=== PATIENT | male | born 1985 | race American Indian/Alaskan Native ===

== ENCOUNTER 2018-01-30 04:06 | Emergency (ER) | payer SELFPAY ==
[2018-01-30] MEDS ORDERED: ATIVAN ONE (04:34)
[2018-01-30] MEDS ORDERED: NACL 0.9% 1000 ML 1,000 ML ONE (04:34)
[2018-01-30] MEDS ORDERED: NACL 0.9% 1000 ML 1,000 ML IV ONE ×3 (04:39→06:35)
[2018-01-30] MEDS ORDERED: ATIVAN IV ONE (04:39)
[2018-01-30 05:12] LABS: Hematocrit 40.3 % (35.5-45.6); Hemoglobin 13.6 gm/dl (11.8-15.2); Mean Corpuscular HGB Conc 34 % (32-34); Mean Corpuscular Hemoglobin 29 pg (28-32); Mean Corpuscular Volume 85 fl (84-94); Platelet Count 202 K/mm3 (140-440); Red Blood Count 4.74 M/mm3 (3.65-5.03); Red Cell Distribution Width 14.2 % (13.2-15.2)
[2018-01-30 05:23] LABS: Bilirubin,Urine NEG (Negative); Blood,Urine LG (Negative); Color,Urine Yellow (Yellow); Hyaline Casts,Urine 2 /LPF
[2018-01-30 05:27] LABS: Methadone Screen,Urine PRESUMPTIVE NEGATIVE; Opiate Screen,Urine PRESUMPTIVE NEGATIVE
[2018-01-30 05:30] LABS: Alanine Aminotransferase 162 units/L (7-56); Albumin 3.7 g/dL (3.9-5); BUN/Creatinine Ratio 11; Blood Urea Nitrogen 14 mg/dL (9-20); Calcium 7.4 mg/dL (8.4-10.2); Hemolysis Index 8
[2018-01-30 05:40] LABS: Amphetamine Screen,Urine PRESUMPTIVE POSITIVE; Benzodiazepines Screen,Urine PRESUMPTIVE POSITIVE; Cannabinoid Screen,Urine PRESUMPTIVE POSITIVE; Cocaine Screen,Urine PRESUMPTIVE POSITIVE
[2018-01-30 06:07] LABS: Band Neutrophils # (Manual) 0.2 K/mm3; Basophils % (Manual) 0 % (0.0-1.8); Eosinophils % (Manual) 0 % (0.0-4.3); Platelet Estimate Consistent w Auto; Total Cells Counted 100
[2018-01-30] MEDS: KCL 10MEQ/100ML 10 MEQ/100 ML BAG IV SCH ×3 (06:17→08:39)
--- NOTE | 2018-01-30 06:33 | Emergency Department Report ---
ED Altered Mental Status HPI - General Chief Complaint: Altered Mental Status Stated Complaint: EXCITED DELIRIUM Time Seen by Provider: 01/30/18 06:01 Source: EMS Mode of arrival: Stretcher Limitations: Physical Limitation - History of Present Illness Initial Comments: 2-year-old male that presents emergency room with complaints of altered mental status. Patient brought in by police and EMS for belligerent behavior. Patient was given Haldol and Versed by EMS and patient continued to be combative. The police had to taze the patient. Patient continued to combative upon arrival to the ER was given Ativan. At this point patient is A&OX1 and lethargic but arousable. Complaint: altered mental status, decreased responsiveness, intoxication -: Sudden Severity: severe Consistency of Symptoms: waxing and waning Context: drug abuse, trauma Treatments Prior to Arrival: IV fluid - Related Data Allergies Allergy/AdvReac Type Severity Reaction Status Date / Time No Known Allergies Allergy Unverified 01/30/18 04:15 ED Review of Systems ROS: Stated complaint: EXCITED DELIRIUM Other details as noted in HPI Comment: Unobtainable due to pts medical conditions ED Past Medical Hx - Past Medical History Previous Medical History?: No - Surgical History Past Surgical History?: No - Family History Family history: no significant - Social History Smoking Status: Unknown if ever smoked Substance Use Type: Other ED Physical Exam - General Limitations: Altered Mental Status, Physical Limitation General appearance: in no apparent distress, lethargic - Head Head exam: Present: atraumatic, normocephalic - Eye Eye exam: Present: normal appearance - ENT ENT exam: Present: mucous membranes moist - Neck Neck exam: Present: normal inspection - Respiratory Respiratory exam: Present: normal lung sounds bilaterally. Absent: respiratory distress - Cardiovascular Cardiovascular Exam: Present: regular rate, normal rhythm. Absent: systolic murmur, diastolic murmur, rubs, gallop - GI/Abdominal GI/Abdominal exam: Present: soft, normal bowel sounds - Rectal Rectal exam: Present: deferred - Extremities Exam Extremities exam: Present: normal inspection - Back Exam Back exam: Present: normal inspection - Neurological Exam Neurological exam: Present: altered (patient lethargic but arousable. Patient is A&OX1) - Expanded Neurological Exam Expanded Best Eye Response (Anastasiia): (3) open to voice Best Motor Response (Anastasiia): (6) obeys commands Best Verbal Response (Euless): (4) confused conversation Anastasiia Total: 13 - Psychiatric Psychiatric exam: Present: normal affect, normal mood - Skin Skin exam: Present: warm, dry, intact, normal color. Absent: rash - Assessment Assessment Interval: Baseline - Level of Consciousness 1a. Level of Consciousness: alert/keenly responsive - LOC Questions 1b. LOC Questions: answers both correctly - LOC Command 1c. LOC Commands: performs tasks correctly - Best Gaze 2. Best Gaze: normal - Visual 3. Visual: no visual loss - Facial Palsy 4. Facial Palsy: normal symmetrical movement - Motor Arm 5b. Motor Arm Right: no drift 5a. Motor Arm Left: no drift - Motor Leg 6a. Motor Leg Left: no drift 6b. Motor Leg Right: no drift - Limb Ataxia 7. Limb Ataxia: absent - Sensory 8. Sensory: normal - Best Language 9. Best Language: no aphasia - Dysarthria 10. Dysarthria: normal - Extinction and Inattention 11. Extinction/Inattention: no abnormality - Scoring Total Score: 0 Stroke Severity: No Stroke Symptoms ED Course Vital Signs 01/30/18 01/30/18 01/30/18 04:22 04:58 05:00 Temperature Pulse Rate 158 H 133 H 123 H Respiratory 20 26 H 25 H Rate Blood Pressure Blood Pressure 129/55 [Left] O2 Sat by Pulse 93 97 98 Oximetry 01/30/18 01/30/18 01/30/18 05:15 05:16 05:30 Temperature Pulse Rate 121 H 125 H 108 H Respiratory 18 20 19 Rate Blood Pressure 143/73 138/76 Blood Pressure 138/76 [Left] O2 Sat by Pulse 100 100 100 Oximetry 01/30/18 01/30/18 01/30/18 05:45 06:00 06:15 Temperature Pulse Rate 105 H 109 H 115 H Respiratory 17 18 16 Rate Blood Pressure 102/58 102/58 144/90 Blood Pressure [Left] O2 Sat by Pulse 100 100 100 Oximetry 01/30/18 01/30/18 01/30/18 06:30 06:46 06:49 Temperature 98.6 F Pulse Rate 106 H 109 H 108 H Respiratory 18 18 18 Rate Blood Pressure 144/90 126/63 Blood Pressure 137/72 [Left] O2 Sat by Pulse 100 100 100 Oximetry 01/30/18 01/30/18 01/30/18 07:00 07:16 07:30 Temperature Pulse Rate 107 H 101 H 99 H Respiratory 16 15 16 Rate Blood Pressure 137/72 130/66 112/59 Blood Pressure [Left] O2 Sat by Pulse 100 100 100 Oximetry 01/30/18 01/30/18 01/30/18 07:46 08:00 08:15 Temperature Pulse Rate 102 H 99 H 114 H Respiratory 17 16 15 Rate Blood Pressure 107/58 131/74 139/71 Blood Pressure [Left] O2 Sat by Pulse 100 100 100 Oximetry 01/30/18 01/30/18 01/30/18 08:30 08:46 09:01 Temperature Pulse Rate 106 H 109 H 123 H Respiratory 23 19 17 Rate Blood Pressure 139/71 145/74 131/74 Blood Pressure [Left] O2 Sat by Pulse 100 100 98 Oximetry - Reevaluation(s) Reevaluation #1: Due to patient's altered mental status and combative and agitated behaviors, patient will place on 2012 for intoxication 01/30/18 06:01 Patient more awake at this time. Discussed all results with patient. Discussed plan of care and transfer. Patient agrees with plan of care. Patient is now A&OX3. Patient is only confused to the situation. 01/30/18 07:57 - Consultations Consultation #1: We'll consult [facility] due to inferior orbital fracture. 01/30/18 06:33 Dr christiano lobato accepted pt to [facility]. transfer via EMS 01/30/18 08:34 - Lab Data Result diagrams: 01/30/18 04:43 01/30/18 04:43 Lab Results 01/30/18 01/30/18 01/30/18 Range/Units 04:43 04:43 04:43 WBC 19.4 H (4.5-11.0) K/mm3 RBC 4.74 (3.65-5.03) M/mm3 Hgb 13.6 (11.8-15.2) gm/dl Hct 40.3 (35.5-45.6) % MCV 85 (84-94) fl MCH 29 (28-32) pg MCHC 34 (32-34) % RDW 14.2 (13.2-15.2) % Plt Count 202 (140-440) K/mm3 Add Manual Diff Complete Total Counted 100 Seg Neutrophils % Strike Planning Applications Seg Neuts % (Manual) 90.0 H (40.0-70.0) % Band Neutrophils % 1.0 % Lymphocytes % (Manual) 4.0 L (13.4-35.0) % Reactive Lymphs % (Man) 0 % Monocytes % (Manual) 5.0 (0.0-7.3) % Eosinophils % (Manual) 0 (0.0-4.3) % Basophils % (Manual) 0 (0.0-1.8) % Metamyelocytes % 0 % Myelocytes % 0 % Promyelocytes % 0 % Blast Cells % 0 % Nucleated RBC % Not Reportable Seg Neutrophils # Man 17.5 H (1.8-7.7) K/mm3 Band Neutrophils # 0.2 K/mm3 Lymphocytes # (Manual) 0.8 L (1.2-5.4) K/mm3 Abs React Lymphs (Man) 0.0 K/mm3 Monocytes # (Manual) 1.0 H (0.0-0.8) K/mm3 Eosinophils # (Manual) 0.0 (0.0-0.4) K/mm3 Basophils # (Manual) 0.0 (0.0-0.1) K/mm3 Metamyelocytes # 0.0 K/mm3 Myelocytes # 0.0 K/mm3 Promyelocytes # 0.0 K/mm3 Blast Cells # 0.0 K/mm3 WBC Morphology Not Reportable Hypersegmented Neuts Not Reportable Hyposegmented Neuts Not Reportable Hypogranular Neuts Not Reportable Smudge Cells Not Reportable Toxic Granulation Not Reportable Toxic Vacuolation Not Reportable Dohle Bodies Not Reportable Pelger-Huet Anomaly Not Reportable Nithya Rods Not Reportable Platelet Estimate Consistent w auto Clumped Platelets Not Reportable Plt Clumps, EDTA Not Reportable Large Platelets Not Reportable Giant Platelets Not Reportable Platelet Satelliting Not Reportable Plt Morphology Comment Not Reportable RBC Morphology Not Reportable Dimorphic RBCs Not Reportable Polychromasia Not Reportable Hypochromasia Not Reportable Poikilocytosis Not Reportable Anisocytosis Not Reportable Microcytosis Not Reportable Macrocytosis Not Reportable Spherocytes Not Reportable Pappenheimer Bodies Not Reportable Sickle Cells Not Reportable Target Cells Not Reportable Tear Drop Cells Not Reportable Ovalocytes Not Reportable Helmet Cells Not Reportable [place] Bodies Not Reportable [place] Not Reportable [place] Cells Not Reportable Bite Cells Not Reportable Crenated Cell Not Reportable Elliptocytes Not Reportable Acanthocytes (Spur) Not Reportable Rouleaux Not Reportable Hemoglobin C Crystals Not Reportable Schistocytes Not Reportable Malaria parasites Not Reportable Fabricio Bodies Not Reportable Hem Pathologist Commnt No Sodium 150 H (137-145) mmol/L Potassium 3.0 L (3.6-5.0) mmol/L Chloride 114.3 H (98-107) mmol/L Carbon Dioxide 19 L (22-30) mmol/L Anion Gap 20 mmol/L BUN 14 (9-20) mg/dL Creatinine 1.3 (0.8-1.5) mg/dL Estimated GFR > 60 ml/min BUN/Creatinine Ratio 11 % Glucose 84 (75-100) mg/dL Calcium 7.4 L (8.4-10.2) mg/dL Total Bilirubin 0.50 (0.1-1.2) mg/dL AST 454 H (5-40) units/L ALT 162 H (7-56) units/L Alkaline Phosphatase 83 (35-129) units/L Total Creatine Kinase (55-170) units/L Troponin T < 0.010 (0.00-0.029) ng/mL Total Protein 6.1 L (6.3-8.2) g/dL Albumin 3.7 L (3.9-5) g/dL Albumin/Globulin Ratio 1.5 % Urine Color (Yellow) Urine Turbidity (Clear) Urine pH (5.0-7.0) Ur Specific [place] (1.003-1.030) Urine Protein (Negative) mg/dL Urine Glucose (UA) (Negative) mg/dL Urine Ketones (Negative) mg/dL Urine Blood (Negative) Urine Nitrite (Negative) Urine Bilirubin (Negative) Urine Urobilinogen (<2.0) mg/dL Ur Leukocyte Esterase (Negative) Urine WBC (Auto) (0.0-6.0) /HPF Urine RBC (Auto) (0.0-6.0) /HPF U Epithel Cells (Auto) (0-13.0) /HPF Hyaline Casts /LPF Urine Opiates Screen Presumptive negative Urine Methadone Screen Presumptive negative Ur Barbiturates Screen Presumptive negative Ur Phencyclidine Scrn Presumptive negative Ur Amphetamines Screen Presumptive positive U Benzodiazepines Scrn Presumptive positive Urine Cocaine Screen Presumptive positive U Marijuana (THC) Screen Presumptive positive Drugs of Abuse Note Disclamer Plasma/Serum Alcohol (0-0.07) % 01/30/18 01/30/18 01/30/18 Range/Units 04:43 04:43 04:43 WBC (4.5-11.0) K/mm3 RBC (3.65-5.03) M/mm3 Hgb (11.8-15.2) gm/dl Hct (35.5-45.6) % MCV (84-94) fl MCH (28-32) pg MCHC (32-34) % RDW (13.2-15.2) % Plt Count (140-440) K/mm3 Add Manual Diff Total Counted Seg Neutrophils % Seg Neuts % (Manual) (40.0-70.0) % Band Neutrophils % % Lymphocytes % (Manual) (13.4-35.0) % Reactive Lymphs % (Man) % Monocytes % (Manual) (0.0-7.3) % Eosinophils % (Manual) (0.0-4.3) % Basophils % (Manual) (0.0-1.8) % Metamyelocytes % % Myelocytes % % Promyelocytes % % Blast Cells % % Nucleated RBC % Seg Neutrophils # Man (1.8-7.7) K/mm3 Band Neutrophils # K/mm3 Lymphocytes # (Manual) (1.2-5.4) K/mm3 Abs React Lymphs (Man) K/mm3 Monocytes # (Manual) (0.0-0.8) K/mm3 Eosinophils # (Manual) (0.0-0.4) K/mm3 Basophils # (Manual) (0.0-0.1) K/mm3 Metamyelocytes # K/mm3 Myelocytes # K/mm3 Promyelocytes # K/mm3 Blast Cells # K/mm3 WBC Morphology Hypersegmented Neuts Hyposegmented Neuts Hypogranular Neuts Smudge Cells Toxic Granulation Toxic Vacuolation Dohle Bodies Pelger-Huet Anomaly Nithya Rods Platelet Estimate Clumped Platelets Plt Clumps, EDTA Large Platelets Giant Platelets Platelet Satelliting Plt Morphology Comment RBC Morphology Dimorphic RBCs Polychromasia Hypochromasia Poikilocytosis Anisocytosis Microcytosis Macrocytosis Spherocytes Pappenheimer Bodies Sickle Cells Target Cells Tear Drop Cells Ovalocytes Helmet Cells [place] Bodies [place] Cells Bite Cells Crenated Cell Elliptocytes Acanthocytes (Spur) Rouleaux Hemoglobin C Crystals Schistocytes Malaria parasites Fabricio Bodies Hem Pathologist Commnt Sodium (137-145) mmol/L Potassium (3.6-5.0) mmol/L Chloride (98-107) mmol/L Carbon Dioxide (22-30) mmol/L Anion Gap mmol/L BUN (9-20) mg/dL Creatinine (0.8-1.5) mg/dL Estimated GFR ml/min BUN/Creatinine Ratio % Glucose (75-100) mg/dL Calcium (8.4-10.2) mg/dL Total Bilirubin (0.1-1.2) mg/dL AST (5-40) units/L ALT (7-56) units/L Alkaline Phosphatase (35-129) units/L Total Creatine Kinase 95030 H (55-170) units/L Troponin T (0.00-0.029) ng/mL Total Protein (6.3-8.2) g/dL Albumin (3.9-5) g/dL Albumin/Globulin Ratio % Urine Color Yellow (Yellow) Urine Turbidity Cloudy (Clear) Urine pH 5.0 (5.0-7.0) Ur Specific [place] 1.019 (1.003-1.030) Urine Protein 100 mg/dl (Negative) mg/dL Urine Glucose (UA) Neg (Negative) mg/dL Urine Ketones Neg (Negative) mg/dL Urine Blood Lg (Negative) Urine Nitrite Neg (Negative) Urine Bilirubin Neg (Negative) Urine Urobilinogen 4.0 (<2.0) mg/dL Ur Leukocyte Esterase Neg (Negative) Urine WBC (Auto) 8.0 H (0.0-6.0) /HPF Urine RBC (Auto) 13.0 (0.0-6.0) /HPF U Epithel Cells (Auto) 1.0 (0-13.0) /HPF Hyaline Casts 2 /LPF Urine Opiates Screen Urine Methadone Screen Ur Barbiturates Screen Ur Phencyclidine Scrn Ur Amphetamines Screen U Benzodiazepines Scrn Urine Cocaine Screen U Marijuana (THC) Screen Drugs of Abuse Note Plasma/Serum Alcohol < 0.01 (0-0.07) % - EKG Data -: EKG Interpreted by [place] EKG shows normal: sinus rhythm, axis, intervals, QRS complexes, ST-T waves Rate: tachycardia - Radiology Data Radiology results: report reviewed CT head and facial bones noted to have a right inferior wall fracture. - Medical Decision Making She is a 32-year-old male aggressive behavior and agitation patient was given multiple medications to calm down. Patient was found to have a right inferior orbital wall fracture and will be sent to [facility] for further evaluation and treatment. Accepting physician is Dr. Lobato - Differential Diagnosis agitation. drug abuse/use. rabdo. dehydration. facial fx. trauma Critical Care Time: Yes Critical care attestation.: If time is entered above; I have spent that time in minutes in the direct care of this critically ill patient, excluding procedure time. Critical Care Time: 35 minutes for cc time ED Disposition Clinical Impression: Agitation Altered mental status Qualifiers: Altered mental status type: unspecified Qualified Code(s): R41.82 - Altered mental status, unspecified Orbital fracture Qualifiers: Encounter type: initial encounter Fracture type: closed Qualified Code(s): S02.80XA - Fracture of other specified skull and facial bones, unspecified side , initial encounter for closed fracture Rhabdomyolysis Qualifiers: Rhabdomyolysis type: traumatic Encounter type: initial encounter Qualified Code (s): T79.6XXA - Traumatic ischemia of muscle, initial encounter Disposition: [id number] OP ADMIT IP TO THIS HOSP Is pt being admited?: No Does the pt Need Aspirin: No Condition: Critical Time of Disposition: 08:38
[2018-01-30] MEDS ORDERED: SOLU-Medrol ONE (07:26)
[2018-01-30] MEDS ORDERED: PEPCID IV ONE (07:27)
[2018-01-30] MEDS ORDERED: ZOFRAN ONE (07:30)
[2018-01-30] MEDS ORDERED: ADRENALIN ONE (07:31)
[2018-01-30 09:08] VITALS: BP 131/74
--- NOTE | 2018-01-30 10:29 | Cat Scan Report ---
FINAL REPORT PROCEDURE: CT HEAD WO CONTRAST TECHNIQUE: Computerized tomography of the facial bones and soft tissues with axial and coronal sections performed from the cranial aspect of the frontal sinuses to the caudal portion of the mandible without contrast material. HISTORY: FACIAL SWELLING COMPARISON: No prior studies are available for comparison. FINDINGS: Bones: There is a fracture of the right inferior orbital wall, age is not determined. Minimal fat is identified extending through this fracture region. No muscular entrapment. The remaining osseous structures are intact.. Paranasal sinuses: Clear. Soft tissues: No significant abnormality. Other: None. IMPRESSION: There is a right inferior orbital wall fracture/opening, minimal fat is identified extending through this region. No muscular entrapment. There remaining osseous structures are intact.
--- NOTE | 2018-01-30 10:29 | Cat Scan Report ---
FINAL REPORT PROCEDURE: CT HEAD WO CONTRAST TECHNIQUE: Computerized tomography of the head was performed without contrast material. HISTORY: AMS COMPARISON: No prior studies are available for comparison. FINDINGS: Skull and scalp: Normal. Paranasal sinuses: Normal. Ventricles and subarachnoid spaces: Normal. Cerebrum: No evidence of hemorrhage, acute infarction or mass . Cerebellum and brainstem: No evidence of hemorrhage, acute infarction or mass. Vasculature: Normal. Comments: None. IMPRESSION: There is no evidence of an acute intracranial process
== END 2018-01-30 09:39 | disposition admitted as inpatient to this hospital (09) ==
LOC: ED 04:06
DX: S02.80XA Fracture of other specified skull and facial bones, unspecified side, initial encounter for closed fracture (principal); T79.6XXA Traumatic ischemia of muscle, initial encounter; R41.82 Altered mental status, unspecified; F12.10 Cannabis abuse, uncomplicated; F14.10 Cocaine abuse, uncomplicated; F15.10 Other stimulant abuse, uncomplicated
CPT/HCPCS: 36415; 70450; 70486; 80053; 80307; 81001; 82550; 84484; 85007; 85025; 93005; 93010; 96361; 96374; 99291; G0480; J2060; J3480; J7030; 80320; J0171; J2405; J2930